=== PATIENT | male | born 2000 | race Two or more races ===

== ENCOUNTER 2023-10-16 16:26 | Emergency (ER) | payer MEDICAID, OTHER ==
[~2023-10-16] VITALS: Ht 160 cm; Wt 121.3 kg
[2023-10-16] MEDS ORDERED: ACET500T58 PO (20:41)
[2023-10-16 21:04] VITALS: BP 122/75; PULSE 103; RESP 16; TEMP 99
[2023-10-16 21:17] VITALS: O2SAT 98
== END 2023-10-16 21:27 | disposition home or self-care (01) ==
LOC: ER 16:26 → EDBD 16:26 → ER 21:27
DX: S46.812A Strain of other muscles, fascia and tendons at shoulder and upper arm level, left arm, initial encounter (principal); S80.02XA Contusion of left knee, initial encounter; F84.0 Autistic disorder; Z79.899 Other long term (current) drug therapy; V53.6XXA Passenger in pick-up truck or van injured in collision with car, pick-up truck or van in traffic accident, initial encounter; Y93.89 Activity, other specified; Y92.89 Other specified places as the place of occurrence of the external cause; Y99.8 Other external cause status
CPT/HCPCS: 73562